=== PATIENT | male | born 1950 | race American Indian/Alaskan Native ===

== ENCOUNTER 2017-12-01 05:56 | Outpatient (CLI) | payer MEDICARE ==
[2017-12-01 07:20] LABS: Hematocrit 39.6 % (35.5-45.6); Hemoglobin 13.2 gm/dl (11.8-15.2); Mean Corpuscular HGB Conc 33 % (32-34); Mean Corpuscular Hemoglobin 31 pg (28-32); Mean Corpuscular Volume 93 fl (84-94); Platelet Count 185 K/mm3 (140-440); Red Blood Count 4.24 M/mm3 (3.65-5.03); Red Cell Distribution Width 14.7 % (13.2-15.2)
[2017-12-01 07:34] LABS: Alanine Aminotransferase 34 units/L (7-56); Albumin 4.3 g/dL (3.9-5); BUN/Creatinine Ratio 11; Blood Urea Nitrogen 14 mg/dL (9-20); Chol/HDL Ratio 4.02 %; HDL Cholesterol 42 mg/dL (40-59); Hemolysis Index 4; LDL Cholesterol,Direct 107 mg/dL (50-130)
--- NOTE | 2017-12-01 09:41 | Cat Scan Report ---
CT CHEST WITH CONTRAST: HISTORY: Mediastinum, history of prostate cancer. COMPARISON: none. TECHNIQUE: Helical CT in 1.25mm intervals following IV contrast. Sagittal and coronal reformatted images. FINDINGS: Thyroid gland: Normal. Tracheobronchial tree: Normal. Esophagus: Normal. Heart: Normal. Pericardium: Normal. Mediastinum: Normal. Lung Lane: Normal. Pleural Spaces: Normal. Musculoskeletal: Mild thoracic spondylosis. No suspicious bony lesion identified. IMPRESSION: Unremarkable CT chest with contrast.
== END 2017-12-01 05:57 | disposition home or self-care (01) ==
LOC: CT 05:56
PROVIDERS: ATTEND Internal Medicine
DX: J98.59 Other diseases of mediastinum, not elsewhere classified (principal); M47.894 Other spondylosis, thoracic region; Z85.46 Personal history of malignant neoplasm of prostate; Z79.899 Other long term (current) drug therapy
CPT/HCPCS: 36415; 71260; 80053; 80061; 84436; 84443; 85027; Q9967